=== PATIENT | male | born 1985 | race Two or more races ===

== ENCOUNTER 2023-12-27 19:30 | Emergency (ER) | payer SELFPAY ==
[~2023-12-27] VITALS: Ht 170.2 cm; Wt 90.7 kg
[2023-12-27 19:37] VITALS: BP 128/90; PULSE 97; RESP 16; O2SAT 99
== END 2023-12-27 22:15 | disposition left against medical advice (07) ==
LOC: ER 19:30 → EDBD 19:30 → ER 22:15
DX: R45.851 Suicidal ideations (principal); Z53.21 Procedure and treatment not carried out due to patient leaving prior to being seen by health care provider